=== PATIENT | male | born 1960 | race Caucasian/White ===

== ENCOUNTER → 2016-07-20 | Outpatient (CLI) | payer OTHER ==
--- NOTE | 2016-07-20 08:16 | EKG REPORT ---
SEVERITY:- ABNORMAL ECG - SINUS TACHYCARDIA ATRIAL PREMATURE COMPLEXES BORDERLINE T ABNORMALITIES, INFERIOR LEADS BORDERLINE PROLONGED QT INTERVAL : Confirmed by: Nicolas Lentz MD 20-Jul-2016 08:16:19
[2016-07-20 08:20] LABS: ABSOLUTE BASOPHILS # (AUTO) 0.1 10^3/uL (0.0-0.2); ABSOLUTE EOSINOPHILS # (AUTO) 0.2 10^3/uL (0.0-0.6); ABSOLUTE MONOCYTES (AUTO) 0.8 10^3/uL (0.1-1.4); ABSOLUTE NEUT (AUTO) 6.3 10^3/uL (1.7-8.2); BASOPHILS % (AUTO) 0.9 % (0-2); EOSINOPHILS % (AUTO) 2.5 % (0-6); HEMATOCRIT 47.8 % (37.9-51.0); HEMOGLOBIN 16.5 g/dL (13.5-17.0); HGB HCT DIFFERENCE 1.7; LYMPHOCYTES % (AUTO) 21.3 % (13-45); MEAN CORPUSCULAR HEMOGLOBIN 32.3 pg (27.0-33.4); MEAN CORPUSCULAR HGB CONC 34.5 g/dL (32.0-36.0); MEAN CORPUSCULAR VOLUME 94 fl (80-97); MONOCYTES % (AUTO) 8.7 % (3-13); RED CELL DISTRIBUTION WIDTH 13.1 % (11.5-14.0); SEGMENTED NEUTROPHILS % (AUTO) 66.6 % (42-78); WHITE BLOOD COUNT 9.4 10^3/uL (4.0-10.5)
[2016-07-20 08:39] LABS: ALANINE AMINOTRANSFERASE 45 U/L (21-72); ALBUMIN 4.5 g/dL (3.5-5.0); ALKALINE PHOSPHATASE 81 U/L (38-126); ANION GAP 15 (5-19); ASPARTATE AMINO TRANSFERASE 27 U/L (17-59); BILIRUBIN,DIRECT 0.4 mg/dL (0.0-0.4); BILIRUBIN,TOTAL 0.9 mg/dL (0.2-1.3); BLOOD UREA NITROGEN 12 mg/dL (7-20); CALCIUM 9.3 mg/dL (8.4-10.2); CARBON DIOXIDE 22 mmol/L (22-30); CHLORIDE 102 mmol/L (98-107); CHOLESTEROL 194.61 mg/dL (0-200); CREATININE RESULT 0.88 mg/dL (0.52-1.25); Direct HDL 33 mg/dL (>40); GLUCOSE 128 mg/dL (75-110); POTASSIUM 4.9 mmol/L (3.6-5.0); TOTAL PROTEIN 7.4 g/dL (6.3-8.2); TRIGLYCERIDES 476 mg/dL (<150)
[2016-07-20 08:49] LABS: DIRECT LDL 106 mg/dL (<100)
== END ==
LOC: CCC 07:03
DX: I10 Essential (primary) hypertension (principal); J44.9 Chronic obstructive pulmonary disease, unspecified; R07.9 Chest pain, unspecified; I49.9 Cardiac arrhythmia, unspecified
CPT/HCPCS: 36415; 80053; 80061; 83036; 84153; 84443; 85025; 93005; 93010

== ENCOUNTER → 2016-11-26 | Outpatient (CLI) | payer OTHER ==
--- NOTE | 2016-11-27 16:39 | RADIOLOGY REPORT (SQ) ---
EXAM DESCRIPTION: L SPINE WHOLE; T SPINE AP/LAT COMPLETED DATE/TIME: 11/26/2016 9:07 am REASON FOR STUDY: CHRONIC BACK PAIN COMPARISON: None. NUMBER OF VIEWS: Two views thoracic spine. Five views lumbosacral spine including obliques. LIMITATIONS: None. FINDINGS: T-spine: No malalignment. Multilevel mild disc disease with associated narrowing and sma ll osteophytes. No fracture or bone lesion. L-spine: Normal alignment. Normal bone density. Disc related osteophytes at several levels. Disc space narrowing at L5-S1. Mild upper endplate depression at L2, likely chronic given the appearance. Facet arthropathy is present but no pars defect evident. OTHER: No other significant finding. IMPRESSION: Degenerative changes in the thoracic and lumbar spine as above. TECHNICAL DOCUMENTATION: JOB ID: [id number]
== END ==
LOC: RAD 08:45
DX: M54.9 Dorsalgia, unspecified (principal)
CPT/HCPCS: 72070; 72110

== ENCOUNTER → 2017-05-12 | Outpatient (CLI) | payer MEDICAID ==
--- NOTE | 2017-05-12 08:21 | RADIOLOGY REPORT (SQ) ---
EXAM DESCRIPTION: CHEST PA/LATERAL COMPLETED DATE/TIME: 05/12/2017 7:57 am REASON FOR STUDY: CHRONIC OBSTRUCTIVE PULMONARY DISEASE, UNSPECIFIED COMPARISON: 12/11/2015. EXAM PARAMETERS: NUMBER OF VIEWS: two views TECHNIQUE: Digital Frontal and Lateral radiographic views of the chest acquired. RADIATION DOSE: NA LIMITATIONS: none FINDINGS: LUNGS AND PLEURA: Chronic bilateral interstitial changes. No acute infiltrates or effusio ns. MEDIASTINUM AND HILAR STRUCTURES: No masses or contour abnormalities. HEART AND VASCULAR STRUCTURES: The heart and pulmonary vasculature are normal. BONES: Dorsal spondylosis. HARDWARE: None in the chest. OTHER: No other significant finding. IMPRESSION: Chronic bilateral interstitial changes. No acute disease. TECHNICAL DOCUMENTATION: JOB ID: [id number] 2010 [email or web address]- All Rights Reserved
== END ==
LOC: OD 07:46
PROVIDERS: ATTEND Nurse Practitioner
DX: J44.9 Chronic obstructive pulmonary disease, unspecified (principal)
CPT/HCPCS: 71046

== ENCOUNTER → 2017-05-19 | Outpatient (CLI) | payer MEDICAID ==
--- NOTE | 2017-05-19 11:40 | RADIOLOGY REPORT (SQ) ---
EXAM DESCRIPTION: CAROTID DOPPLER COMPLETED DATE/TIME: 05/19/2017 11:26 am REASON FOR STUDY: SYNCOPE R55 SYNCOPE AND COLLAPSE COMPARISON: None. TECHNIQUE: Grayscale ultrasound, Doppler velocity and spectra, and color Doppler images acquired of the extra-cranial carotid and vertebral arteries. Images stored on PACS. LIMITATIONS: None. FINDINGS: RIGHT CAROTID CCA Velocities: Within normal limits. ICA Velocities Peak systolic 0.56 m/s. End diastolic 0.18 m/s. Proximal ICA/CCA peak systolic ratio 0.5. Spectra normal. No significant plaque. LEFT CAROTID CCA Velocities: Within normal limits. ICA Velocities Peak systolic 0.79 m/s. End diastolic 0.21 m/s. Proximal ICA/CCA peak systolic ratio 0.9. Spectra normal. No significant plaque. VERTEBRAL ARTERIES: Right vertebral was not identified. Normal blood flow was identified in the left vertebral artery. SUBCLAVIAN ARTERIES: No finding. OTHER: No other significant finding. IMPRESSION: NO HEMODYNAMICALLY SIGNIFICANT STENOSIS. COMMENT: Quality ID #[id number]: Velocity criteria are extrapolated from the diameter data as defined by t he Society of Radiologists in Ultrasound Consensus Conference. Radiology 2003: 229; 340-346. TECHNICAL DOCUMENTATION: JOB ID: [id number] [employer]- All Rights Reserved
== END ==
LOC: SP 10:33
PROVIDERS: ATTEND Nurse Practitioner
DX: R55 Syncope and collapse (principal)
CPT/HCPCS: 93880

== ENCOUNTER 2017-05-25 07:17 | Day surgery (SDC) | payer MEDICAID ==
[2017-05-25] MEDS ORDERED: DIPHENHYDRAMINE HCL 50 MG/ML VIAL ONE (07:18)
[2017-05-25] MEDS ORDERED: ONDANSETRON HCL INJ/PF 4 MG/2 ML SDV ONE (07:18)
[2017-05-25] MEDS ORDERED: NALOXONE HCL INJ/PF 0.4 MG/1 ML SDV ONE (07:19)
[2017-05-25] MEDS ORDERED: FLUMAZENIL INJ 0.5 MG/5 ML VIAL ONE (07:20)
[2017-05-25] MEDS ORDERED: EPINEPHRINE INJ 1 MG/10 ML DISP.SYRIN ONE (07:20)
[2017-05-25] MEDS ORDERED: GLUCAGON,HUMAN RECOMB 1 MG INJ ONE (07:20)
[2017-05-25] MEDS: MIDAZOLAM 2 MG/2 ML INJ ONE ×3 (08:07→08:15)
[2017-05-25] MEDS: FENTANYL CITRATE INJ/PF 100 MCG/2 ML AMPUL ONE ×2 (08:09→08:12)
--- NOTE | 2017-05-25 08:29 | Operative Report ---
Operative Report DATE OF SURGERY: 05/25/17 Operative Report: The risks benefits and alternatives of the procedure explained to the patient in detail and informed consent is obtained.A GIF Olympus video scope was inserted into the patient's mouth and hypopharynx, the esophagus is identified intubated and insufflated, the scope was then advanced through the esophagus stomach and duodenum, retroflexion maneuver is done, the esophagus stomach and first and second portions of the duodenum examined PREOPERATIVE DIAGNOSIS: Dysphagia POSTOPERATIVE DIAGNOSIS: Esophagitis versus Regalado's status post biopsy for confirmation. Gastritis status post biopsy rule out Helicobacter pylori. Duodenitis OPERATION: EGD with biopsy SURGEON: LALO CARUSO ANESTHESIA: Moderate Sedation - 6 mg of Versed, 100 mcg of fentanyl. Conscious sedation monitoring time 30 minutes. TISSUE REMOVED OR ALTERED: As noted above. COMPLICATIONS: None. ESTIMATED BLOOD LOSS: None. INTRAOPERATIVE FINDINGS: As noted above. PROCEDURE: Patient tolerated procedure well. No immediate postprocedure complications are noted. Patient discharged in good condition. Discharge date 05/25/2017. Discharge diet: Regular. Discharge activity: Regular. 2-3 week follow-up to discuss findings. Patient is instructed to call the office or proceed to the emergency room should there be any further problems or questions. We will wait on pathology. May have to schedule patient for ablative therapy if biopsies returned showing Regalado's esophagus.
[2017-05-25 09:08] VITALS: BP 112/58
[2017-05-25] MEDS ORDERED: DIPHENHYDRAMINE HCL 50 MG/ML VIAL IV PRN (16:37)
[2017-05-25] MEDS ORDERED: MORPHINE SULFATE 10 MG/ML INJ IV PRN (16:37)
[2017-05-25] MEDS ORDERED: FENTANYL CITRATE INJ/PF 100 MCG/2 ML AMPUL IV PRN ×3 (16:37)
[2017-05-25] MEDS ORDERED: MEPERIDINE HCL/PF INJ 25 MG/1 ML DISP.SYRIN IV PRN (16:37)
[2017-05-25] MEDS ORDERED: PROMETHAZINE HCL INJ 25 MG/1 ML VIAL IV PRN (16:37)
== END 2017-05-25 09:25 | disposition home or self-care (01) ==
LOC: END 07:17
PROVIDERS: ATTEND Internal Medicine Gastroenterology
PROC: 0DB68ZX Excision of Stomach, Via Natural or Artificial Opening Endoscopic, Diagnostic (ICD-10-PCS; 2017-05-25)
PROC: 0DB48ZX Excision of Esophagogastric Junction, Via Natural or Artificial Opening Endoscopic, Diagnostic (ICD-10-PCS; principal; 2017-05-25 08:00)
DX: R13.10 Dysphagia, unspecified (principal); K29.80 Duodenitis without bleeding; K29.50 Unspecified chronic gastritis without bleeding; K21.9 Gastro-esophageal reflux disease without esophagitis; E78.2 Mixed hyperlipidemia; I10 Essential (primary) hypertension; J44.9 Chronic obstructive pulmonary disease, unspecified; E66.9 Obesity, unspecified; F17.210 Nicotine dependence, cigarettes, uncomplicated; Z79.51 Long term (current) use of inhaled steroids; Z79.899 Other long term (current) drug therapy; Z79.82 Long term (current) use of aspirin; Z68.36 Body mass index [BMI] 36.0-36.9, adult
CPT/HCPCS: 43239; 88342 ×2; 88305 ×2; J2250; J3010; J0171; J1200; J1610; J2310; J2405; J3490

== ENCOUNTER 2017-06-21 07:40 | Day surgery (SDC) | payer MEDICAID ==
[~2017-06-21 07:40] MED LIST: PROPOFOL INJ 200 MG/20 ML VIAL IV ONE
[2017-06-21] MEDS ORDERED: ALBUTEROL SULFATE 0.083% NEB 2.5 MG/3 ML AMPUL NEB ONE (08:25)
[2017-06-21] MEDS ORDERED: RINGERS SOLUTION,LACTATED 1,000 ML IV PRN (08:56)
[2017-06-21 10:42] VITALS: BP 102/62
--- NOTE | 2017-06-21 13:37 | Operative Report ---
Operative Report DATE OF SURGERY: 06/21/17 Operative Report: The risks benefits and alternatives of the procedure explained to the patient in detail and informed consent is obtained.A GIF Olympus video scope was inserted into the patient's mouth and hypopharynx, the esophagus is identified intubated and insufflated, the scope was then advanced through the esophagus stomach and duodenum, retroflexion maneuver is done, the esophagus stomach and first and second portions of the duodenum examined PREOPERATIVE DIAGNOSIS: Regalado's esophagus POSTOPERATIVE DIAGNOSIS: Regalado's esophagus status post ablation OPERATION: EGD with ablation SURGEON: LALO CARUSO ANESTHESIA: LMAC TISSUE REMOVED OR ALTERED: None. COMPLICATIONS: None. ESTIMATED BLOOD LOSS: None. INTRAOPERATIVE FINDINGS: As noted above. PROCEDURE: Patient tolerated procedure well. No immediate postprocedure complications are noted. Patient discharged in good condition. Discharge date 06/21/2017. Discharge diet: Regular. Discharge activity: Regular. 2-3 week follow-up to discuss findings. Patient is instructed to call the office or proceed to the emergency room should there be any further problems or questions. Surveillance EGD 6 months for repeat evaluation and possible repeat ablation
== END 2017-06-21 09:45 | disposition home or self-care (01) ==
LOC: END 07:40
PROVIDERS: ATTEND Internal Medicine Gastroenterology
DX: K22.719 Barrett's esophagus with dysplasia, unspecified (principal); I10 Essential (primary) hypertension; E78.2 Mixed hyperlipidemia; F17.210 Nicotine dependence, cigarettes, uncomplicated; J44.9 Chronic obstructive pulmonary disease, unspecified; E66.9 Obesity, unspecified; K21.9 Gastro-esophageal reflux disease without esophagitis; Z79.51 Long term (current) use of inhaled steroids; Z79.899 Other long term (current) drug therapy; Z68.35 Body mass index [BMI] 35.0-35.9, adult; Z79.82 Long term (current) use of aspirin
CPT/HCPCS: 43270; J2704; 731

== ENCOUNTER → 2017-09-27 | Outpatient (CLI) | payer MEDICAID ==
--- NOTE | 2017-09-27 16:45 | RADIOLOGY REPORT (SQ) ---
EXAM DESCRIPTION: CT CHEST WITHOUT COMPLETED DATE/TIME: 09/27/2017 1:43 pm REASON FOR STUDY: PULMONARY NODULE (R91.1) R91.1 SOLITARY PULMONARY NODULE COMPARISON: None. TECHNIQUE: CT scan performed of the chest without intravenous contrast. Images reviewed with lung, soft tissue and bone windows. Reconstructed coronal and sagittal MPR images reviewed. All images st ored on PACS. All CT scanners at this facility use dose modulation, iterative reconstruction, and/or weight based d osing when appropriate to reduce radiation dose to as low as reasonably achievable (ALARA). [facility]: Dose Right [facility]: CareDose [facility]: Dose Right [facility]: Teradose 4D [facility]: [facility] RADIATION DOSE: CT Rad equipment meets quality standard of care and radiation dose reduction techniq ues were employed. CTDIvol: 15.1 mGy. DLP: 609 mGy-cm. mGy. LIMITATIONS: No technical limitations. FINDINGS: LUNGS AND PLEURA: Emphysematous changes in the lungs with blebs/bullae in the biapical, p aramediastinal and paraseptal regions grossly in the upper lobes. In the right upper lobe, coronal i mage 16, series 602, a small 3-4 mm pulmonary nodule. Focal areas of noncalcified pleural plaques in the posterior aspect of the hemithoraces. These findings may be on a prior inflammatory by basis. No acute pulmonary consolidation. No pneumothorax or pleural effusion. The central airways are yanni r. HILAR AND MEDIASTINAL STRUCTURES: No identified masses or abnormal nodes. No obvious aneurysm. HEART AND VASCULAR STRUCTURES: Coronary artery calcifications. No aneurysm. No pericardial effusio n. UPPER ABDOMEN: Mild atherosclerotic changes involving the visualized upper abdominal aorta. No sign ificant findings. Limited exam. THYROID AND OTHER SOFT TISSUES: The visualized thyroid gland is heterogenous in appearance with nodu les in the left lobe. BONES: No significant finding. HARDWARE: None in the chest. OTHER: Small hiatal hernia. Calcified densities in the soft tissues lateral right axilla maybe rela johnathon to prior old trauma/injury. IMPRESSION: 1 A small subcentimeter 3-4 mm right upper lobe pulmonary nodule. 2. Emphysematous changes in the lungs. 3 There are noncalcified plaques in the posterior aspect of the hemithoraces bilaterally. These find ings may be on prior inflammatory basis. 4. The visualized thyroid gland is heterogenous in appearance with nodules in the left lobe. 5 Additional findings as above. TECHNICAL DOCUMENTATION: JOB ID: [id number] Quality ID # [id number]: Final reports with documentation of one or more dose reduction techniques (e.g., Au tomated exposure control, adjustment of the mA and/or kV according to patient size, use of iterative reconstruction technique) 2010 [employer]- All Rights Reserved Reading location - IP/workstation name: [email or web address]
== END ==
LOC: RAD 13:19
PROVIDERS: ATTEND Internal Medicine Critical Care Medicine
DX: R91.1 Solitary pulmonary nodule (principal)
CPT/HCPCS: 71250

== ENCOUNTER → 2018-02-08 | Outpatient (CLI) | payer MEDICAID ==
--- NOTE | 2018-02-08 11:40 | RADIOLOGY REPORT (SQ) ---
EXAM DESCRIPTION: ELBOW RIGHT >2 VIEWS COMPLETED DATE/TIME: 02/08/2018 10:40 am REASON FOR STUDY: UNSPECIFIED INJURY OF RIGHT ELBOW, INITIAL ENCOUNTER S59.901A UNSPECIFIED INJURY OF RIGHT ELBOW, INITIAL ENCOUNTE COMPARISON: None. NUMBER OF VIEWS: Four views. TECHNIQUE: AP, lateral, and both oblique radiographic images acquired of the right elbow. LIMITATIONS: None. FINDINGS: MINERALIZATION: Normal. BONES: No acute fracture or dislocation. No worrisome bone lesions. JOINT: There is a small joint effusion. SOFT TISSUES: No soft tissue swelling. No foreign body. OTHER: No other significant finding. IMPRESSION: Small joint effusion. Occult fracture cannot be excluded. TECHNICAL DOCUMENTATION: JOB ID: [id number] [employer]- All Rights Reserved Reading location - IP/workstation name: [email or web address]
== END ==
LOC: OD 09:58
PROVIDERS: ATTEND Nurse Practitioner Family
DX: S59.901A Unspecified injury of right elbow, initial encounter (principal); X58.XXXA Exposure to other specified factors, initial encounter; M25.421 Effusion, right elbow

== ENCOUNTER 2018-12-02 07:20 | Day surgery (SDC) | payer MEDICAID ==
[2018-12-02] MEDS ORDERED: PROPOFOL INJ 200 MG/20 ML VIAL IV ONE ×2 (07:24→08:33)
[2018-12-02 08:51] VITALS: BP 128/70
[2018-12-02] MEDS ORDERED: CITRIC ACID/SODIUM CITRATE ORAL SOLN 15 ML UDCUP PO ONE (09:30)
--- NOTE | 2018-12-02 12:01 | Operative Report ---
Operative Report DATE OF SURGERY: 12/02/18 Operative Report: The risks benefits and alternatives of the procedure explained to the patient in detail and informed consent is obtained.A GIF Olympus video scope was inserted into the patient's mouth and hypopharynx, the esophagus is identified intubated and insufflated, the scope was then advanced through the esophagus stomach and duodenum ,retroflexion maneuver is done ,the esophagus stomach and first and second portions of the duodenum examined. PREOPERATIVE DIAGNOSIS: Gastroesophageal reflux disease, Regalado's esophagus POSTOPERATIVE DIAGNOSIS: Hiatal hernia. Regalado's esophagus status post radiofrequency ablation OPERATION: EGD with radiofrequency ablation SURGEON: LALO CARUSO ANESTHESIA: LMAC TISSUE REMOVED OR ALTERED: None. COMPLICATIONS: None. ESTIMATED BLOOD LOSS: None. INTRAOPERATIVE FINDINGS: As noted above. PROCEDURE: Patient tolerated the procedure well. No immediate postprocedure complications are noted. Patient is discharged in good condition. Discharge date 12/02/2018. Discharge diet: Regular. Discharge activity: Regular. 2 to 3-week follow-up to discuss findings. Patient is instructed to call the office or proceed to the emergency room should there be any further questions.
== END 2018-12-02 09:05 | disposition home or self-care (01) ==
LOC: END 07:20
PROVIDERS: ATTEND Internal Medicine Gastroenterology
DX: K22.719 Barrett's esophagus with dysplasia, unspecified (principal); K21.9 Gastro-esophageal reflux disease without esophagitis; K44.9 Diaphragmatic hernia without obstruction or gangrene; J44.9 Chronic obstructive pulmonary disease, unspecified; I10 Essential (primary) hypertension; I25.10 Atherosclerotic heart disease of native coronary artery without angina pectoris; E66.9 Obesity, unspecified; Z68.32 Body mass index [BMI] 32.0-32.9, adult
CPT/HCPCS: 43270; J3490; J2704; 731

== ENCOUNTER → 2019-01-30 | Outpatient (CLI) | payer MEDICAID ==
--- NOTE | 2019-01-30 16:25 | RADIOLOGY REPORT (SQ) ---
EXAM DESCRIPTION: CT CHEST WITHOUT COMPLETED DATE/TIME: 01/30/2019 8:44 am REASON FOR STUDY: (J43.9)EMPHYSEMA, UNSPECIFIED J43.9 EMPHYSEMA, UNSPECIFIED COMPARISON: None. TECHNIQUE: CT scan performed of the chest without intravenous contrast. Images reviewed with lung, soft tissue and bone windows. Reconstructed coronal and sagittal MPR images reviewed. All images st ored on PACS. All CT scanners at this facility use dose modulation, iterative reconstruction, and/or weight based d osing when appropriate to reduce radiation dose to as low as reasonably achievable (ALARA). [facility]: Dose Right [facility]: CareDose [facility]: Dose Right [facility]: Teradose 4D [facility]: [facility] [employer] RADIATION DOSE: CT Rad equipment meets quality standard of care and radiation dose reduction techniq ues were employed. CTDIvol: 16.3 mGy. DLP: 756 mGy-cm. mGy. LIMITATIONS: No technical limitations. FINDINGS: LUNGS AND PLEURA: Mild paraseptal emphysematous changes are seen in the upper lobes. No i nfiltrate or effusion. No pulmonary mass. HILAR AND MEDIASTINAL STRUCTURES: There are some small nonspecific mediastinal nodes. HEART AND VASCULAR STRUCTURES: No aneurysm. No pericardial effusion. UPPER ABDOMEN: Small mesenteric nodes are seen. THYROID AND OTHER SOFT TISSUES: No masses. No adenopathy. BONES: No significant finding. HARDWARE: None in the chest. OTHER: No other significant findings. IMPRESSION: Mild paraseptal emphysema. Mild mediastinal and mesenteric adenopathy. TECHNICAL DOCUMENTATION: JOB ID: [id number] Quality ID # [id number]: Final reports with documentation of one or more dose reduction techniques (e.g., Au tomated exposure control, adjustment of the mA and/or kV according to patient size, use of iterative reconstruction technique) 2010 [employer]- All Rights Reserved Reading location - IP/workstation name: [email or web address]
== END ==
LOC: RAD 08:24
PROVIDERS: ATTEND Internal Medicine Critical Care Medicine
DX: J43.9 Emphysema, unspecified (principal); Z80.9 Family history of malignant neoplasm, unspecified; R05 Cough
CPT/HCPCS: 71250

== ENCOUNTER → 2019-02-03 | Outpatient (CLI) | payer MEDICAID | LOC: OD 08:17 | PROVIDERS: ATTEND Otolaryngology | DX: J30.9 Allergic rhinitis, unspecified (principal) | CPT/HCPCS: 36415; 82785; 86003 ==

== ENCOUNTER → 2019-02-03 | Outpatient (CLI) | payer MEDICAID ==
--- NOTE | 2019-02-03 09:49 | RADIOLOGY REPORT (SQ) ---
EXAM DESCRIPTION: MRI LUMBAR SPINE WITHOUT COMPLETED DATE/TIME: 02/03/2019 7:45 am REASON FOR STUDY: LUMBAR RADICULOPATHY (M54.16) M54.16 RADICULOPATHY, LUMBAR REGION COMPARISON: None. TECHNIQUE: Sagittal and Axial imaging includes T1, T2, STIR and gradient echo sequences. Coronal T2/ HASTE imaging. LIMITATIONS: None. FINDINGS: VISUALIZED UPPER ABDOMEN: No abnormality. SEGMENTATION: There are 5 lumbar-type vertebral bodies. There is no transitional anatomy at the lumb osacral junction. ALIGNMENT: Straightening of the normal lordotic curvature of the cervical spine with grade 1 retrolis thesis of L5 relative to S1. VERTEBRAE: The lumbar vertebral body heights are preserved. There are Schmorl's nodes at the superio r endplates of L3 and L4. There is no fracture. BONE MARROW: There are Modic type 2 endplate changes at L1-L2, L2-L3, L3-L4 and L5-S1. DISC SIGNAL: The L2-L3 and L3-L4 intervertebral disc are desiccated. The L5-S1 intervertebral disc i s narrowed and desiccated. POSTERIOR ELEMENTS: Intact. HARDWARE: None in the spine. CORD AND CONUS: The conus medullaris terminates at the level of T12-L1 and is normal in caliber and s ignal intensity. SOFT TISSUES: No abnormality. L1-L2: Mild disc bulge without foraminal or spinal stenosis. L2-L3: Mild disc bulge that flattens the ventral aspect of the thecal sac and degeneration of the fac et joints. These findings results in no foraminal or spinal stenosis. L3-L4: Mild disc bulge eccentric to the right that encroaches on the inferior aspect of the neurofora men without mass effect on the nerve roots and degeneration of the facet joints ; these findings resu lt in no foraminal or spinal stenosis. L4-L5: Disc bulge that encroaches on the inferior aspect of the neuroforamina and degeneration of the facet joints ; in combination this findings results in mild bilateral foraminal stenosis without com pression of the nerve roots. L5-S1: Disc bulge that encroaches on the inferior aspect of the neuroforamina and abuts the L5 nerve roots, grade 1 retrolisthesis, and degeneration of the facet joints. In combination these findings r esult in moderate to severe bilateral foraminal stenosis. LOWER THORACIC: No stenosis. SACRUM: Image sacrum is intact. OTHER: No other findings. IMPRESSION: Degenerative spondylosis and facet arthropathy of the lumbar spine with moderate to robert re foraminal stenosis bilaterally at L5-S1. TECHNICAL DOCUMENTATION: JOB ID: [id number] [employer]- All Rights Reserved Reading location - IP/workstation name: [email or web address]
== END ==
LOC: RAD 06:23
PROVIDERS: ATTEND Nurse Practitioner Family
DX: M54.16 Radiculopathy, lumbar region (principal); M47.896 Other spondylosis, lumbar region; M48.07 Spinal stenosis, lumbosacral region
CPT/HCPCS: 72148

== ENCOUNTER → 2020-01-05 | Outpatient (CLI) | payer MEDICAID ==
--- NOTE | 2020-01-05 10:14 | RADIOLOGY REPORT (SQ) ---
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 TECHNIQUE: Sagittal and Axial imaging includes T1, T2, STIR and gradient echo sequences. LIMITATIONS: Motion artifact. FINDINGS: LOCALIZER: No worrisome findings. ALIGNMENT: Normal. VERTEBRAE: Intact. BONE MARROW: Normal. No marrow replacement or reactive changes. HARDWARE: None in the spine. CORD: Normal in size and signal intensity. SOFT TISSUES: No soft tissue masses. THORACIC DISCS T1-T12: Disc bulge at T8- 9 resulting in minimal narrowing of the spinal canal. Small left paracentral disc herniation at T9-10. No cord contact or compression. LOWER CERVICAL: Incompletely imaged. No significant spinal stenosis or exit foraminal stenosis. UPPER LUMBAR: Incompletely imaged. No significant spinal stenosis or exit foraminal stenosis. OTHER: No other significant finding. IMPRESSION: No evidence of acute compression fracture. Small disc herniation T9-10. TECHNICAL DOCUMENTATION: JOB ID: [id number] 2010 [employer]- All Rights Reserved Reading location - IP/workstation name: [email or web address]
== END ==
LOC: RAD 06:51
PROVIDERS: ATTEND Nurse Practitioner Family
DX: M47.814 Spondylosis without myelopathy or radiculopathy, thoracic region (principal); M51.24 Other intervertebral disc displacement, thoracic region
CPT/HCPCS: 72146

== ENCOUNTER 2020-01-17 17:38 | Inpatient (IN) | payer MEDICAID ==
--- NOTE | 2020-01-17 18:06 | ER Document Report ---
ED Medical Screen (RME) - General Chief Complaint: Irregular Pulse Stated Complaint: IRREGULAR HEART RATE Primary Care Provider: TOSHIA GIFFORD FNP-C [Primary Care Provider] - Follow up as needed Notes: Patient is a 59-year-old white male with a history of hypertension and gout who presents the emergency department the chief complaint of atrial fibrillation. He was being evaluated by his primary doctor for complaints of chest pain when they noted atrial fibrillation on EKG. The patient was seeing Dr. Portillo, haz tech recently for follow-up from Holter monitor testing. He reports no known history of atrial fibrillation. States he had a normal echo in the past. States he is currently having some chest pain now. He took aspirin today. I have treated and performed a rapid initial assessment of this patient. A comprehensive ED assessment and evaluation of the patient, analysis of test results and completion of medical decision making process will be conducted by additional ED providers. PHYSICAL EXAMINATION: GENERAL: Well-appearing, well-nourished and in no acute distress. A&Ox4. Answers questions appropriately. TRAVEL OUTSIDE OF THE [place] IN LAST 30 DAYS: No - Related Data Allergies/Adverse Reactions: No Known Allergies Allergy (Verified 12/02/18 06:59) Past Medical History - Past Medical History Cardiac Medical History: Reports: Hx Hypertension Denies: Hx Coronary Artery Disease, Hx Heart Attack Pulmonary Medical History: Reports: Hx Asthma, Hx COPD Denies: Hx Bronchitis, Hx Pneumonia Neurological Medical History: Denies: Hx Cerebrovascular Accident, Hx Seizures Musculoskeltal Medical History: Reports Hx Arthritis, Reports Hx Gout - Immunizations Hx Diphtheria, Pertussis, Tetanus Vaccination: Yes Physical Exam - Vital signs Vitals: Temp Pulse Resp BP Pulse Ox 98.7 F 89 18 140/81 H 96 01/17/20 17:52 01/17/20 17:52 01/17/20 17:52 01/17/20 17:52 01/17/20 17:52 Course - Vital Signs Vital signs: Temp Pulse Resp BP Pulse Ox 98.7 F 89 18 140/81 H 96 01/17/20 17:52 01/17/20 17:52 01/17/20 17:52 01/17/20 17:52 01/17/20 17:52 Doctor's Discharge - Discharge Referrals: TOSHIA GIFFORD FNP-C [Primary Care Provider] - Follow up as needed
--- NOTE | 2020-01-17 18:33 | RADIOLOGY REPORT (SQ) ---
EXAM DESCRIPTION: CHEST SINGLE VIEW IMAGES COMPLETED DATE/TIME: 01/17/2020 6:24 pm REASON FOR STUDY: cp COMPARISON: 12/11/2015 TECHNIQUE: Single frontal radiographic view of the chest acquired. NUMBER OF VIEWS: One view. LIMITATIONS: None. FINDINGS: LUNGS AND PLEURA: No pneumothorax. Mild interstitial thickening bilaterally. No consolid ation or pleural effusion. MEDIASTINUM AND HILAR STRUCTURES: Stable. HEART AND VASCULAR STRUCTURES: Stable. BONES: No acute findings. HARDWARE: None in the chest. OTHER: No other significant finding. IMPRESSION: Mild interstitial thickening bilaterally. No consolidation or pleural effusion. TECHNICAL DOCUMENTATION: JOB ID: [id number] 2010 [employer] - [place]- All Rights Reserved Reading location - IP/workstation name: [email or web address]
[2020-01-17 19:18] LABS: ABSOLUTE BASOPHILS # (AUTO) 0.1 10^3/uL (0.0-0.2); ABSOLUTE EOSINOPHILS # (AUTO) 0.3 10^3/uL (0.0-0.6); ABSOLUTE LYMPHOCYTES (AUTO) 2.2 10^3/uL (0.5-4.7); ABSOLUTE MONOCYTES (AUTO) 0.8 10^3/uL (0.1-1.4); ABSOLUTE NEUT (AUTO) 5.7 10^3/uL (1.7-8.2); EOSINOPHILS % (AUTO) 3.6 % (0-6); HEMATOCRIT 37.6 % (37.9-51.0); HEMOGLOBIN 13.3 g/dL (13.5-17.0); LYMPHOCYTES % (AUTO) 23.8 % (13-45); MEAN CORPUSCULAR HEMOGLOBIN 32.8 pg (27.0-33.4); MEAN CORPUSCULAR HGB CONC 35.4 g/dL (32.0-36.0); MEAN CORPUSCULAR VOLUME 93 fl (80-97); MONOCYTES % (AUTO) 8.8 % (3-13); PLATELET COUNT 175 10^3/uL (150-450); RED BLOOD COUNT 4.06 10^6/uL (4.35-5.55); RED CELL DISTRIBUTION WIDTH 14.3 % (11.5-14.0); SEGMENTED NEUTROPHILS % (AUTO) 62.8 % (42-78); TOTAL CELLS COUNTED % (AUTO) 100 %; WHITE BLOOD COUNT 9.1 10^3/uL (4.0-10.5)
[2020-01-17 19:29] LABS: INTERNATIONAL RATION (INR) 1.06
[2020-01-17 19:30] LABS: PARTIAL THROMBOPLASTIN TIME 30.3 SEC (23.5-35.8)
[2020-01-17 19:33] LABS: ALBUMIN 4.4 g/dL (3.5-5.0); ALKALINE PHOSPHATASE 65 U/L (38-126); ANION GAP 11 (5-19); ASPARTATE AMINO TRANSFERASE 29 U/L (17-59); BILIRUBIN,DIRECT 0.3 mg/dL (0.0-0.4); BILIRUBIN,TOTAL 0.5 mg/dL (0.2-1.3); BLOOD UREA NITROGEN 23 mg/dL (7-20); CARBON DIOXIDE 23 mmol/L (22-30); CHLORIDE 104 mmol/L (98-107); CREATINE KINASE 71 U/L (55-170); GLUCOSE 174 mg/dL (75-110); PHOSPHORUS 4.9 mg/dL (2.5-4.5); TOTAL PROTEIN 6.8 g/dL (6.3-8.2)
[2020-01-17 19:44] LABS: NT PRO BNP 1480 pg/mL (<125)
[2020-01-17 19:48] LABS: TROPONIN I < 0.012 ng/mL
--- NOTE | 2020-01-17 23:06 | ER Document Report ---
ED Cardiac - General Chief Complaint: Irregular Pulse Stated Complaint: IRREGULAR HEART RATE Time Seen by Provider: 01/17/20 22:47 Mode of Arrival: Ambulatory Information source: Patient Notes: 59-year-old male past medical history significant for hyperlipidemia, hypertension, gout, asthma, vitamin D deficiency, COPD presents to the emergency room after being sent over by his primary care physician for new onset of A. fib. Patient states he had a routine follow-up appointment with his doctor's office today to discuss his medications and for his recent onset of leg swelling. Patient stated his primary care physician listened to his heart noticed he had irregular rate and EKG noticed he was in new onset A. fib and was referred to the emergency room. Patient admits to having intermittent chest pain for the past month. Describes it as a pressure to the midsternal region. States he did take 1 baby aspirin earlier this morning. He denies any shortness of breath, no difficulty breathing. TRAVEL OUTSIDE OF THE [place] IN LAST 30 DAYS: No - Related Data Allergies/Adverse Reactions: No Known Allergies Allergy (Verified 12/02/18 06:59) Past Medical History - General Information source: Patient - Social History Smoking Status: Current Every Day Smoker Frequency of alcohol use: None Drug Abuse: None Family History: DM - Past Medical History Cardiac Medical History: Reports: Hx Hypertension Denies: Hx Coronary Artery Disease, Hx Heart Attack Pulmonary Medical History: Reports: Hx Asthma, Hx COPD Denies: Hx Bronchitis, Hx Pneumonia Neurological Medical History: Denies: Hx Cerebrovascular Accident, Hx Seizures Musculoskeletal Medical History: Reports Hx Arthritis, Reports Hx Gout - Immunizations Hx Diphtheria, Pertussis, Tetanus Vaccination: Yes Review of Systems - Review of Systems Constitutional: No symptoms reported EENT: No symptoms reported Cardiovascular: Chest pain, Edema Respiratory: No symptoms reported Musculoskeletal: No symptoms reported Skin: No symptoms reported Neurological/Psychological: No symptoms reported -: Yes All other systems reviewed and negative Physical Exam - Vital signs Vitals: Temp Pulse Resp BP Pulse Ox 98.7 F 89 18 140/81 H 96 01/17/20 17:52 01/17/20 17:52 01/17/20 17:52 01/17/20 17:52 01/17/20 17:52 - General General appearance: Appears well, Alert In distress: Mild - HEENT Head: Normocephalic, Atraumatic Eyes: Normal Pupils: PERRL - Respiratory Respiratory status: No respiratory distress Chest status: Nontender Breath sounds: Decreased air movement Chest palpation: Normal - Cardiovascular Rhythm: Irregularly irregular Heart sounds: Normal auscultation Murmur: No - Extremities General upper extremity: Normal inspection, Nontender, Normal color, Normal ROM, Normal temperature General lower extremity: Normal inspection, Nontender, Edema - 2+ pitting edema bilaterally, Normal color, Normal ROM, Normal temperature. No: Maryann's sign - Skin Skin Temperature: Warm Skin Moisture: Dry Skin Color: Normal Course - Re-evaluation Re-evalutation: 01/17/20 23:15 HEART Score: History 0 ECG 0 Age 1 Risk Factors 2 Troponin 0 Total: 3 01/17/20 23:24 Reviewed lab, x-ray, EKG results with patient. Counseled on need for admission for new onset of A. fib. Patient is agreeable to admission. - Vital Signs Vital signs: Temp Pulse Resp BP Pulse Ox 98.1 F 89 20 147/85 H 97 01/18/20 00:26 01/17/20 17:52 01/18/20 00:26 01/18/20 00:26 01/18/20 00:26 - Laboratory Result Diagrams: 01/17/20 19:03 01/17/20 19:03 Laboratory results interpreted by me: 01/17/20 01/17/20 01/17/20 19:03 19:03 19:03 RBC 4.06 L Hgb 13.3 L Hct 37.6 L RDW 14.3 H BUN 23 H Glucose 174 H Phosphorus 4.9 H ALT 55 H NT-Pro-B Natriuret Pep 1480 H - Diagnostic Test Radiology reviewed: Reports reviewed - EKG Interpretation by Me Rhythm: A.Fib Additional EKG results interpreted by me: 01/17/20 23:05 EKG was interpreted by ER physician Dr. Lemos No acute STEMI A. fib Rate [address] abnormalities Fib new onset when compared to previous EKG of 07/20/16 which showed sinus tachycardia - Consults Dr. Gaming Time consulted: 23:40 Reason for consultation: 01/17/20 23:40 Admit for new onset A. fib. Agrees evaluation, agrees with plan, accepts admission. Would like Dr. Portillo, cardiology notified. Consulted provider: will come to ER Dr. Hernadez Time consulted: 23:46 Reason for consultation: 01/17/20 23:[address] Gaming, chest pain, new onset A. fib Consulted provider: will see as inpatient Discharge - Discharge Clinical Impression: New onset atrial fibrillation Chest pain Qualifiers: Chest pain type: unspecified Qualified Code(s): R07.9 - Chest pain, unspecified Condition: Stable Disposition: ADMITTED OBSERVATION Admitting Provider: Mekhi (Hospitalist) Unit Admitted: Telemetry
[2020-01-17] MEDS ORDERED: ASPIRIN 81 MG TABLET, CHEWABLE PO ONE (23:13)
[2020-01-18] MEDS ORDERED: IPRATROPIUM/ALBUTEROL 0.5-2.5 MG/3 ML AMPUL NEB PRN (00:52)
[2020-01-18] MEDS ORDERED: ACETAMINOPHEN 325 MG TABLET PO PRN (00:54)
[2020-01-18] MEDS ORDERED: ONDANSETRON 4 MG TAB.RAPDIS PO PRN (00:54)
[2020-01-18] MEDS ORDERED: HYDROCODONE/ACETAMINOPHEN 10-325 MG TABLET PO PRN (01:02)
[2020-01-18] MEDS ORDERED: ENOXAPARIN SODIUM INJ 120 MG/0.8 ML DISP.SYRIN SUBCUT ONE (01:30)
--- NOTE | 2020-01-18 02:37 | PDOC H&P ---
History of Present Illness Admission Date/PCP: 01/18/20 00:52 LUIS BANERJEE-Miguel Patient complains of: leg swelling, weight gain History of Present Illness: BROOKLYN JACKSON is a 59 year old male, past medical history of hypertension, hyperlipidemia, gout, asthma, COPD who was sent to the emergency room by his primary care physician for new onset A. fib. Patient saw his primary care physician today for a follow-up appointment to discuss his medications. Upon physical exam his primary care noted irregular heart rate and rhythm, which was confirmed by EKG. He was sent to the ED for further evaluation and management. According to the patient he is noticed a 15 pound weight gain for the past month, with leg swelling, exertional dyspnea, palpitations, and chest pain relieved by rest, midsternal, non radiating. He has seen Dr. Portillo in the past. Past Medical History Cardiac Medical History: Reports: Hypertension Denies: Congestive Heart Failure, Coronary Artery Disease, Myocardial Infarction Pulmonary Medical History: Reports: Asthma, Chronic Obstructive Pulmonary Disease (COPD) Denies: Bronchitis, Pneumonia, Tuberculosis Neurological Medical History: Denies: Seizures Endocrine Medical History: Denies: Diabetes Mellitus Type 2 Renal/ Medical History: Denies: End Stage Renal Disease GI Medical History: Denies: Cirrhosis, Gastroesophageal Reflux Disease Musculoskeltal Medical History: Reports: Arthritis, Gout Psychiatric Medical History: Reports: Alcohol Dependency, Tobacco Dependency Denies: Bipolar Disorder, Depression Hematology: Denies: Anemia, Bleeding Tendencies Past Surgical History Past Surgical History: Reports: Tonsillectomy, Other - exlap as a child Social History Information Source: Patient Smoking Status: Current Every Day Smoker Cigarettes Packs Per Day: 1 Electronic Cigarette use?: No Frequency of Alcohol Use: Heavy Amount of Alcoholic Beverages Per Day: 12 pack per day quit 3 months ago Hx Recreational Drug Use: No - Advance Directive Resuscitation Status: Full Code Family History Family History: Reviewed & Not Pertinent, DM Parental Family History Reviewed: No Children Family History Reviewed: No Sibling(s) Family History Reviewed.: No Medication/Allergy Home Medications: Aspirin [Aspirin EC] 81 mg PO DAILY 05/25/17 Atorvastatin Calcium 40 mg PO DAILY 05/25/17 Cholecalciferol (Vitamin D3) [Vitamin D] 2,000 unit PO DAILY 05/25/17 Docusate Sodium 100 mg PO DAILY 05/25/17 Lisinopril 40 mg PO DAILY 05/25/17 Metoprolol Tartrate [Lopressor 25 mg Tablet] 25 mg PO BID 05/25/17 Allopurinol [Zyloprim 100 mg Tablet] 100 mg PO DAILY 11/30/18 Fluticasone/Salmeterol [Advair 100-50 Diskus 14 Dose/Diskus] 1 spray .ROUTE D AILY 11/30/18 Omeprazole 40 mg PO DAILY 11/30/18 Albuterol Sulfate [Proair Respiclick] 2 puff IH ASDIR PRN 12/02/18 Colchicine [Colchicine 0.6 mg Tablet] 0.6 mg PO DAILY 12/02/18 Fluticasone/Salmeterol [Advair 250-50 Diskus 14 Dose/Diskus] 1 inh IH DAILY 12/02/18 Magnesium Oxide [Magnesium] 500 mg PO DAILY 12/02/18 Metoprolol Tartrate [Lopressor 25 mg Tablet] 25 mg PO Q12 12/02/18 Multivitamin [Multivitamins] 1 each PO DAILY 12/02/18 [place] Jelly/Bee Pollen/P.ginsg [[place] Ginseng Complex Cap] 1 each PO DAILY 12/02/18 Allergies/Adverse Reactions: No Known Allergies Allergy (Verified 12/02/18 06:59) Review of Systems Constitutional: PRESENT: fatigue, weight gain Eyes: ABSENT: visual disturbances Ears: ABSENT: hearing changes Cardiovascular: PRESENT: chest pain, dyspnea on exertion, edema, palpitations. ABSENT: orthropnea Respiratory: ABSENT: cough Gastrointestinal: ABSENT: abdominal pain, diarrhea Neurological: ABSENT: abnormal gait, abnormal movements Psychiatric: ABSENT: depression, suicidal ideation Physical Exam Vital Signs: Temp Pulse Resp BP Pulse Ox 98.1 F 89 20 147/85 H 97 01/18/20 00:26 01/17/20 17:52 01/18/20 00:26 01/18/20 00:26 01/18/20 00:26 Intake & Output 01/16/20 01/17/20 01/18/20 06:59 06:59 06:59 Weight 116.5 kg General appearance: PRESENT: no acute distress, cooperative Head exam: PRESENT: atraumatic, normocephalic Eye exam: PRESENT: EOMI, PERRLA Mouth exam: PRESENT: moist Neck exam: PRESENT: full ROM Respiratory exam: PRESENT: clear to auscultation kayleigh, symmetrical, unlabored Cardiovascular exam: PRESENT: irregular rhythm, tachycardia. ABSENT: gallop, systolic murmur Pulses: PRESENT: +2 pedal pulses bilateral GI/Abdominal exam: PRESENT: normal bowel sounds, soft. ABSENT: rebound, tenderness Extremities exam: PRESENT: +2 edema Musculoskeletal exam: PRESENT: full ROM Neurological exam: PRESENT: alert, awake, oriented to person, oriented to place, oriented to time, oriented to situation Psychiatric exam: PRESENT: normal mood Skin exam: PRESENT: normal color Results Laboratory Results: 01/17/20 19:03 01/17/20 19:03 01/17/20 01/17/20 01/17/20 19:03 19:03 22:31 WBC 9.1 RBC 4.06 L Hgb 13.3 L Hct 37.6 L MCV 93 MCH 32.8 MCHC 35.4 RDW 14.3 H Plt Count 175 Seg Neutrophils % 62.8 Sodium 138.4 Potassium 4.0 Chloride 104 Carbon Dioxide 23 Anion Gap 11 BUN 23 H Creatinine 0.91 Est GFR ( Amer) > 60 Glucose 174 H Calcium 10.0 Ionized Calcium Lauren 1.19 Phosphorus 4.9 H Magnesium 1.6 Total Bilirubin 0.5 AST 29 Alkaline Phosphatase 65 Total Protein 6.8 Albumin 4.4 01/17/20 01/17/20 01/18/20 19:03 19:03 00:24 Creatine Kinase 71 Troponin I < 0.012 < 0.012 NT-Pro-B Natriuret Pep 1480 H Impressions: Chest X-Ray 01/17/20 18:04 IMPRESSION: Mild interstitial thickening bilaterally. No consolidation or pleural effusion. Assessment and Plan - Diagnosis (1) New onset atrial fibrillation Is this a current diagnosis for this admission?: Yes Plan: - EKG a.fib HR 90s - no prior history - Chadsvasc score 1 (for hypertension) 2 if with CHF - started on lovenox therapeutic - resumed lopressor - echo pending - TSH pending - Dr. Portillo consulted (2) HTN (hypertension) Qualifiers: Hypertension type: essential hypertension Qualified Code(s): I10 - Essential (primary) hypertension Is this a current diagnosis for this admission?: Yes Plan: - BP 140/81 - resumed lisinopril and metoprolol (3) HLD (hyperlipidemia) Qualifiers: Hyperlipidemia type: unspecified Qualified Code(s): E78.5 - Hyperlipidemia, unspecified Is this a current diagnosis for this admission?: Yes Plan: - lipid panel pending - continue statin (4) Gout Qualifiers: Gout site: unspecified site Gout etiology: unspecified cause Chronicity: chronic Presence of tophus: without tophus Qualified Code(s): M1A.9XX0 - Chronic gout, unspecified, without tophus (tophi) Is this a current diagnosis for this admission?: Yes Plan: - resmued allopurinol and colchicine (5) Chest pain Qualifiers: Chest pain type: unspecified Qualified Code(s): R07.9 - Chest pain, unspecified Is this a current diagnosis for this admission?: Yes Plan: - EKG A.fib not in RVR - trop negative x 2 - likely a.fib related - resumed aspirin and metoprolol (6) Elevated brain natriuretic peptide (BNP) level Is this a current diagnosis for this admission?: Yes Plan: - BNP 1480 - +ve weight gain - CXR no congestion - likely has CHF secondary to a.fib - echo pending - may need lasix dr. portillo on board (7) Obesity (BMI 30-39.9) Is this a current diagnosis for this admission?: Yes Plan: - advised diet and weight loss (8) COPD (chronic obstructive pulmonary disease) Qualifiers: COPD type: unspecified COPD Qualified Code(s): J44.9 - Chronic obstructive pulmonary disease, unspecified Is this a current diagnosis for this admission?: Yes Plan: - not in exacerbation - current smoker - on duoneb prn (9) Tobacco abuse Is this a current diagnosis for this admission?: Yes Plan: - smoking cessation counseling - Time Time Spent with patient: 35 or more minutes Smoking Cessation Education: 3 to 10 minutes Medications reviewed and adjusted accordingly: Yes Anticipated Discharge Disposition: Home, Self Care Anticipated Discharge Timeframe: within 48 hours - Inpatient Certification Medical Necessity: Significant Comorbidiites Make Outpatient Treatment Too Risky
[2020-01-18] MEDS ORDERED: PANTOPRAZOLE SODIUM 40 MG TABLET.DR PO SCH (06:00)
--- NOTE | 2020-01-18 08:54 | EKG REPORT ---
SEVERITY:- ABNORMAL ECG - ATRIAL FIBRILLATION, V-RATE 62-139 : Confirmed by: Domenica Leung MD 18-Jan-2020 08:54:21
[2020-01-18] MEDS ORDERED: APIXABAN 5 MG TABLET PO SCH (10:00)
[2020-01-18] MEDS ORDERED: COLCHICINE 0.6 MG TABLET PO SCH (10:00)
[2020-01-18] MEDS ORDERED: FUROSEMIDE INJ/PF 20 MG/2 ML SDV IV SCH ×2 (10:00→22:00)
[2020-01-18] MEDS ORDERED: FLUTICASONE/VILANTEROL 100-25 MCG/DOSE IH SCH (10:00)
[2020-01-18] MEDS ORDERED: ENOXAPARIN SODIUM INJ 120 MG/0.8 ML DISP.SYRIN SUBCUT SCH (10:00)
[2020-01-18] MEDS ORDERED: METOPROLOL TARTRATE 25 MG TABLET PO SCH (10:00)
[2020-01-18] MEDS ORDERED: LISINOPRIL 10 MG TABLET PO SCH (10:00)
[2020-01-18] MEDS ORDERED: DOCUSATE SODIUM 100 MG CAPSULE PO SCH (10:00)
[2020-01-18] MEDS ORDERED: ALLOPURINOL 100 MG TABLET PO SCH (10:00)
[2020-01-18] MEDS ORDERED: ASPIRIN 81 MG TABLET, ENT COATED PO SCH (10:00)
--- NOTE | 2020-01-18 12:03 | PDOC CONSULTATION ---
Consultation Consult Date: 01/18/20 Attending physician:: KIERSTEN ENWMAN Provider Consulted: JUNIOR PEARCE Consult reason:: A-fib History of Present Illness Admission Date/PCP: 01/18/20 00:52 BREANNE BANERJEE History of Present Illness: BROOKLYN JACKSON is a 59 year old male with history of hypertension, hyperlipidemia, gout, asthma, COPD who is consulted to our service for evaluation of atrial fibrillation. He was seen by his primary care physician and was noted to be in atrial fibrillation. This morning he was feeling okay and he now respiratory distress. His main complaint was 15 pound weight gain in 1 month associated with swelling of the ankles. He denied PND, orthopnea and DUNLAP. His BNP slightly elevated at 1480 with chest x-ray suggestive of early pulmonary edema. His telemetry demonstrated atrial fibrillation with a controlled heart rate. Physical exam on 01/18/2020: GENERAL: Pleasant and conversational. Oriented x3 with normal mood. Not in acute distress. Well groomed and well developed. HEENT: Normocephalic, atraumatic. Pupils equal. Sclerae anicteric. Oropharynx moist. NECK: No JVD. No carotid bruits. LUNGS: Clear to auscultation bilaterally. Normal respiratory effort without the use of accessory muscles or intercostal retractions. CARDIOVASCULAR: Irregularly irregular rate and rhythm, normal S1 and S2 without murmurs, rubs, or gallops. PMI not displaced. ABDOMEN: No masses or tenderness to palpation. No bruit. No splenomegaly or hepatomegaly. No abdominal aorta bruit noted. EXTREMITIES: 1+ pitting edema bilaterally, no cyanosis, no clubbing. +2 pulses femoral and pedal pulses bilaterally. SKIN: No lesions or rashes. MUSCULOSKELETAL: No chest tenderness to palpation. NEUROLOGIC: Nonfocal. No gross sensory or motor deficits bilateral upper or lower extremities. Cardiac studies: Nuclear stress testing on 08/26/16: 1. Negative Lexiscan portion with respect to perfusion images suggestive of ischemia or infarct. 2. Preserved left ventricular systolic function with a resting ejection fraction of 69%. 3. Normal regional wall motion analysis. EKG on 08/14/16: Normal sinus rhythm, normal EKG. Echocardiogram on 07/28/16: -Ejection fraction is within normal limits. -The left ventricle is grossly normal in size. -Cannot accurately commented on regional wall motion abnormalities. -RV systolic function is normal. -Borderline left atrial last week. -Trace MR, trace TR. Holter monitor on 07/29/16: Unremarkable Holter. Past Medical History Cardiac Medical History: Reports: Hypertension Denies: Congestive Heart Failure, Coronary Artery Disease, Myocardial Infarction Pulmonary Medical History: Reports: Asthma, Chronic Obstructive Pulmonary Disease (COPD) Denies: Bronchitis, Pneumonia, Tuberculosis Neurological Medical History: Denies: Seizures Endocrine Medical History: Denies: Diabetes Mellitus Type 2 Renal/ Medical History: Denies: End Stage Renal Disease GI Medical History: Denies: Cirrhosis, Gastroesophageal Reflux Disease Musculoskeltal Medical History: Reports: Arthritis, Gout Psychiatric Medical History: Reports: Alcohol Dependency, Tobacco Dependency Denies: Bipolar Disorder, Depression Hematology: Denies: Anemia, Bleeding Tendencies Past Surgical History Past Surgical History: Reports: Tonsillectomy, Other - exlap as a child Social History Smoking Status: Current Every Day Smoker Cigarettes Packs Per Day: 1 Electronic Cigarette use?: No Frequency of Alcohol Use: Heavy Hx Recreational Drug Use: No - Advance Directive Resuscitation Status: Full Code Family History Family History: Reviewed & Not Pertinent, DM Parental Family History Reviewed: Yes Children Family History Reviewed: Yes Sibling(s) Family History Reviewed.: Yes Medication/Allergy Home Medications: Atorvastatin Calcium 40 mg PO DAILY 05/25/17 Cholecalciferol (Vitamin D3) [Vitamin D] 2,000 unit PO DAILY 05/25/17 Lisinopril 40 mg PO DAILY 05/25/17 Metoprolol Tartrate [Lopressor 25 mg Tablet] 25 mg PO BID 05/25/17 Omeprazole 40 mg PO DAILY 11/30/18 Albuterol Sulfate [Proair Respiclick] 2 puff IH QID 12/02/18 Fluticasone/Salmeterol [Advair 250-50 Diskus 14 Dose/Diskus] 1 inh IH BID 12/02/18 Allopurinol [Zyloprim 300 mg Tablet] 600 mg PO DAILY 01/18/20 Fluticasone Propionate [Flonase Nasal [place] 50 Mcg/[place] 16 gm] 2 sprays NASL Q12 01/18/20 Gabapentin [Neurontin 300 mg Capsule] 300 mg PO QID 01/18/20 Hydrochlorothiazide 12.5 mg PO DAILY 01/18/20 Loratadine [Claritin 10 mg Tablet] 10 mg PO DAILY 01/18/20 Meloxicam [Mobic] 15 mg PO DAILY 01/18/20 Pravastatin Sodium 80 mg PO DAILY 01/18/20 Allergies/Adverse Reactions: No Known Allergies Allergy (Verified 12/02/18 06:59) Physical Exam Vital Signs: Temp Pulse Resp BP Pulse Ox 97.8 F 83 18 146/83 H 98 01/18/20 01:18 01/18/20 01:18 01/18/20 01:18 01/18/20 01:18 01/18/20 01:18 Intake & Output 01/17/20 01/18/20 01/19/20 06:59 06:59 06:59 Weight 116.5 kg Results Laboratory Results: 01/17/20 19:03 01/17/20 19:03 01/17/20 01/17/20 01/17/20 19:03 19:03 22:31 WBC 9.1 RBC 4.06 L Hgb 13.3 L Hct 37.6 L MCV 93 MCH 32.8 MCHC 35.4 RDW 14.3 H Plt Count 175 Seg Neutrophils % 62.8 Sodium 138.4 Potassium 4.0 Chloride 104 Carbon Dioxide 23 Anion Gap 11 BUN 23 H Creatinine 0.91 Est GFR ( Amer) > 60 Glucose 174 H Calcium 10.0 Ionized Calcium Lauren 1.19 Phosphorus 4.9 H Magnesium 1.6 Total Bilirubin 0.5 AST 29 Alkaline Phosphatase 65 Total Protein 6.8 Albumin 4.4 01/17/20 01/17/20 01/18/20 19:03 19:03 00:24 Creatine Kinase 71 Troponin I < 0.012 < 0.012 NT-Pro-B Natriuret Pep 1480 H Impressions: Chest X-Ray 01/17/20 18:04 IMPRESSION: Mild interstitial thickening bilaterally. No consolidation or pleural effusion. 01/17/20 19:03 01/17/20 19:03 MCV 93 fl (80-97) 01/17/20 19:03 MCH 32.8 pg (27.0-33.4) 01/17/20 19:03 MCHC 35.4 g/dL (32.0-36.0) 01/17/20 19:03 RDW 14.3 % (11.5-14.0) H 01/17/20 19:03 Seg Neutrophils % 62.8 % (42-78) 01/17/20 19:03 Chloride 104 mmol/L (98-107) 01/17/20 19:03 Carbon Dioxide 23 mmol/L (22-30) 01/17/20 19:03 Anion Gap 11 (5-19) 01/17/20 19:03 Est GFR ( Amer) > 60 (>60) 01/17/20 19:03 Glucose 174 mg/dL (75-110) H 01/17/20 19:03 Calcium 10.0 mg/dL (8.4-10.2) 01/17/20 19:03 Ionized Calcium Lauren 1.19 mmol/L (1.14-1.30) 01/17/20 22:31 Phosphorus 4.9 mg/dL (2.5-4.5) H 01/17/20 19:03 Magnesium 1.6 mg/dL (1.6-2.3) 01/17/20 19:03 Total Bilirubin 0.5 mg/dL (0.2-1.3) 01/17/20 19:03 AST 29 U/L (17-59) 01/17/20 19:03 Alkaline Phosphatase 65 U/L (38-126) 01/17/20 19:03 Total Protein 6.8 g/dL (6.3-8.2) 01/17/20 19:03 Albumin 4.4 g/dL (3.5-5.0) 01/17/20 19:03 01/17/20 01/17/20 01/18/20 19:03 19:03 00:24 Creatine Kinase 71 Troponin I < 0.012 < 0.012 NT-Pro-B Natriuret Pep 1480 H Current Medication List Generic Name Dose Route Start Last Admin Trade Name Freq PRN Reason Stop Dose Admin Acetaminophen 650 mg 01/18/20 00:54 Tylenol 325 Mg Tablet PO 02/17/20 00:53 Q4HP PRN FEVER >101 Hydrocodone Bitart/Acetaminophen 1 tab 01/18/20 01:02 01/18/20 01:42 [place] 10-325 Mg Tablet PO 01/25/20 01:01 1 tab Q6HP PRN Administration FOR PAIN Albuterol/Ipratropium 3 ml 01/18/20 00:52 Duoneb 3 Ml Ampul NEB 02/17/20 00:51 RTQ4HP PRN SHORTNESS OF BREATH Allopurinol 100 mg 01/18/20 10:00 Zyloprim 100 Mg Tablet PO 02/17/20 09:59 DAILY [facility] Aspirin 81 mg 01/18/20 10:00 Ecotrin 81 Mg Ec Tablet PO 02/17/20 09:59 DAILY [facility] Atorvastatin Calcium 40 mg 01/18/20 22:00 Lipitor 40 Mg Tablet PO 02/17/20 21:59 QHS [facility] Colchicine 0.6 mg 01/18/20 10:00 Colcrys 0.6 Mg Tablet PO 02/17/20 09:59 DAILY [facility] Docusate Sodium 100 mg 01/18/20 10:00 Colace 100 Mg Capsule PO 02/17/20 09:59 DAILY [facility] Enoxaparin Sodium 115 mg 01/18/20 10:00 Lovenox Inj 120 Mg/0.8 Ml Disp.Syrin SUBCUT 02/17/20 09:59 Q12 [facility] Fluticasone/Vilanterol 1 inh 01/18/20 10:00 Breo 100-25 Mcg Ellipta 14 Dose/Dpi IH 02/17/20 09:59 DAILY [facility] Lisinopril 40 mg 01/18/20 10:00 Prinivil 10 Mg Tablet PO 02/17/20 09:59 DAILY [facility] Metoprolol Tartrate 25 mg 01/18/20 10:00 Lopressor 25 Mg Tablet PO 02/17/20 09:59 BID [facility] Ondansetron HCl 4 mg 01/18/20 00:54 Zofran Odt 4 Mg Tablet PO 02/17/20 00:53 Q8HP PRN FOR NAUSEA/VOMITING Pantoprazole Sodium 40 mg 01/18/20 06:00 01/18/20 06:[address] Tablet PO 02/17/20 05:59 40 mg Q6AM [facility] Administration Discontinued Medications Generic Name Dose Route Start Last Admin Trade Name Freq PRN Reason Stop Dose Admin Aspirin 324 mg 01/17/20 23:13 01/18/20 00:31 Aspirin 81 Mg Chewable Tablet PO 01/17/20 23:14 324 mg NOW ONE Administration Enoxaparin Sodium 115 mg 01/18/20 01:30 01/18/20 01:42 Lovenox Inj 120 Mg/0.8 Ml Disp.Syrin SUBCUT 01/18/20 01:31 115 mg NOW ONE Administration Assessment & Plan - Diagnosis (1) New onset atrial fibrillation Is this a current diagnosis for this admission?: Yes Plan: The patient was just diagnosed with new onset of atrial fibrillation. He is otherwise asymptomatic with a well-controlled heart rate. He is currently anticoagulated due to his chads 2 vascular score of 2 (hypertension and heart failure). Recommendations: -Echocardiogram to assess for structural heart disease. -Lexiscan nuclear stress test when patient is euvolemic. -Continue with current medical management. (2) Elevated brain natriuretic peptide (BNP) level Is this a current diagnosis for this admission?: Yes Plan: Likely secondary to his atrial fibrillation and probable heart failure with preserved ejection fraction given his echocardiogram in 2017 with normal left ventricular systolic function. Recommendations: -Continue diuresis with Lasix 10 mg IV twice daily -Replace electrolytes as indicated. -Restrict fluid intake to 1500 cc daily. -Low sodium diet, less than 1500 mg daily. -Strict intake and output. -Daily weights. -Echocardiogram. -Ischemic assessment when the patient is euvolemic. (3) Chest pain Qualifiers: Chest pain type: unspecified Qualified Code(s): R07.9 - Chest pain, unspecified Is this a current diagnosis for this admission?: Yes Plan: The patient will undergo nuclear stress testing when euvolemic.
[2020-01-18 13:57] VITALS: BP 117/70
--- NOTE | 2020-01-18 20:49 | XCELERA REPORT ---
[address] [address] Transthoracic Echocardiogram Report Name: BROOKLYN JACKSON Age: 59 yrs Gender: Male : 1960 Patient Status: Inpatient Patient Location: [address] [place] [address] Study Date: 01/18/2020 10:13 AM Height: 71 in Weight: 256 lb BSA: 2.3 m2 Procedure: A complete two-dimensional transthoracic echocardiogram was performed (2D, M-mode, spectral and color flow Doppler). Study Quality: Technically suboptimal. Reason For Study: CHF Ordering Physician: KIERSTEN NEWMAN Performed By: Tanja Ortega Interpretation Summary The left ventricle is normal in size. Left ventricular systolic function is normal. LV EF is 60%. LV diastolic function could not be adequately assessed due to atrial fibrilation. Regional wall motion abnormalities cannot be excluded due to limited visualization. There is no thrombus. LV diastolic function could not be adequately assessed due to atrial fibrilation. Mild LAE. Trace MR, trace TR. Small, hemodynamically insignificant anteror pericardial effusion. When compared to a prior study dated JUL 27, there is now a small, anterior pericardial effusion. MMode/2D Measurements & Calculations RVDd: 2.3 cm LVIDd: 5.6 cm FS: 28.8 % Ao root diam: 2.6 cm IVSd: 1.1 cm LVIDs: 4.0 cm EDV(Teich): 152.8 ml Ao root area: 5.4 cm2 LVPWd: 1.3 cm ESV(Teich): 69.1 ml EF(Teich): 54.8 % Doppler Measurements & Calculations MV E max catrachita: MV dec slope: Ao V2 max: LV V1 max P.8 cm/sec 499.0 cm/sec2 88.4 cm/sec 3.1 mmHg MV dec time: 0.21 secAo max PG: LV V1 max: 3.1 mmHg 87.3 cm/sec PA V2 max: TR max catrachita: 69.8 cm/sec 246.1 cm/sec PA max P.0 mmHg TR max P.2 mmHg Left Ventricle The left ventricle is normal in size. Left ventricular systolic function is normal. LV EF is 60%. LV diastolic function could not be adequately assessed due to atrial fibrilation. Regional wall motion abnormalities cannot be excluded due to limited visualization. There is no thrombus. Right Ventricle The right ventricle is normal in size, thickness and function. The right ventricular systolic function is normal. Atria The right atrium is normal. The left atrium is mildly dilated. Interarterial septum not well visualized and not well dopplered. Cannot comment on ASD/PFO presence. Mitral Valve The mitral valve is normal in structure and function. There is a trace amount of mitral regurgitation. Aortic Valve The aortic valve is not well visualized secondary to technical limitations. No aortic regurgitation is present. Tricuspid Valve The tricuspid is normal in structure and function. There is a trace or physiologic amount of tricuspid regurgitation. Pulmonic Valve The pulmonic valve is normal in structure and function. There is no pulmonic valvular regurgitation. Effusions Small, hemodynamically insignificant anteror pericardial effusion. : KIERSTEN NEWMAN Antonio
[2020-01-18] MEDS ORDERED: ATORVASTATIN CALCIUM 40 MG TABLET PO SCH (22:00)
[2020-01-19] MEDS ORDERED: INFLUENZA QUAD (6MOS+) 2020-21 VAC 0.5 ML SYR IM ONE (08:00)
--- NOTE | 2020-01-19 19:37 | PDOC DISCHARGE SUMMARY ---
Impression - Admit/DC Date/PCP Admission Date/Primary Care Provider: 01/18/20 00:52 LUIS BANERJEE-Miguel Discharge Date: 01/18/20 - Discharge Diagnosis (1) New onset atrial fibrillation Is this a current diagnosis for this admission?: Yes (2) Elevated brain natriuretic peptide (BNP) level Is this a current diagnosis for this admission?: Yes (3) Weight gain with edema Is this a current diagnosis for this admission?: Yes (4) Chest pain Is this a current diagnosis for this admission?: Yes (5) Gout Is this a current diagnosis for this admission?: Yes (6) HLD (hyperlipidemia) Is this a current diagnosis for this admission?: Yes (7) HTN (hypertension) Is this a current diagnosis for this admission?: Yes (8) Obesity (BMI 30-39.9) Is this a current diagnosis for this admission?: Yes (9) Tobacco abuse Is this a current diagnosis for this admission?: Yes (10) Pre-diabetes Is this a current diagnosis for this admission?: Yes - Assessment Summary: BROOKLYN JACKSON is a 59 year old male, past medical history of hypertension, hyperlipidemia, gout, asthma, COPD who was sent to the emergency room by his primary care physician for new onset A. fib. Per pt an irregular heart rate was noted by his PCP on exam, this was confirmed by EKG and pt was subsequently referred to the ED for evaluation of management. On evaluation pt reports a 15 pound weight gain for the past month, with leg swelling, exertional dyspnea, palpitations, and chest pain relieved by rest, midsternal, non radiating. He denies PND, orthopnea and DUNLAP. BNP in the ED was slightly elevated at 1480 with CXR suggestive of early pulmonary edema. Pt was placed on telemetry which demonstrated atrial fibrillation with a controlled rate. Patient's previous reports were reviewed. Pt had previous cardiac work up including nuclear stress testing 08/16/2016 and Echocardiogram 07/28/2016 with preserved LVEF of 69% at that time. An echocardiogram was obtained today, for evaluation of structural heart disease with results pending. Patient was found to have a LONG-VASC score of 2 (HTN and heart failure) indicating the need for anticoagulant therapy; anticoagulation with Eliquis initiated at discharge. On telemetry which demonstrated atrial fibrillation with a controlled rate. Metoprolol 25mg initiated for rate control. Suspect pt's elevated BNP is secondary to atrial fibrillation and probable heart failure. We increased pt's lasix to 20mg twice daily. Educated the patient on limited fluid intake and low sodium diet. Patient is encouraged to weight himself daily. He is instructed on appropriate lasix adjustments given weight gain. Pt is instructed to stop his HCTZ at this time. He is scheduled to f/u with cardiology in 1-2 weeks for repeat stress test. On evaluation pt was found to be pre-diabetic with hemaglobin A1C of 6.1. Educated on appropriate diet. No treatment necessary at this time. Pt is to f/u with PCP for further monitoring and treatment. - Additional Information Resuscitation Status: Full Code Discharge Diet: Cardiac, Diabetic, Other (Comments) Discharge Activity: Activity As Tolerated Referrals: TOSHIA GIFFORD FNP-C [Primary Care Provider] - 01/19/20 11:00 am Prescriptions: Apixaban [Eliquis] 5 mg PO ASDIR #1 tab.ds.pk Furosemide [Lasix 20 mg Tablet] 20 mg PO QAM #30 tablet Home Medications: Atorvastatin Calcium 40 mg PO DAILY 05/25/17 Cholecalciferol (Vitamin D3) [Vitamin D3] 2,000 unit PO DAILY 05/25/17 Lisinopril 40 mg PO DAILY 05/25/17 Metoprolol Tartrate [Lopressor 25 mg Tablet] 25 mg PO BID 05/25/17 Omeprazole 40 mg PO DAILY 11/30/18 Albuterol Sulfate [Proair Respiclick] 2 puff IH QID 12/02/18 Fluticasone/Salmeterol [Advair 250-50 Diskus 14 Dose/Diskus] 1 inh IH BID 12/02/18 Allopurinol [Zyloprim 300 mg Tablet] 600 mg PO DAILY 01/18/20 Apixaban [Eliquis] 5 mg PO ASDIR #1 tab.ds.pk 01/18/20 Fluticasone Propionate [Flonase Nasal [place] 50 Mcg/[place] 16 gm] 2 sprays NASL Q12 01/18/20 Furosemide [Lasix 20 mg Tablet] 20 mg PO QAM #30 tablet 01/18/20 Gabapentin [Neurontin 300 mg Capsule] 300 mg PO QID 01/18/20 Loratadine [Claritin 10 mg Tablet] 10 mg PO DAILY 01/18/20 Meloxicam [Mobic] 15 mg PO DAILY 01/18/20 Pravastatin Sodium 80 mg PO DAILY 01/18/20 History of Present Illiness History of Present Illness: BROOKLYN JACKSON is a 59 year old male, past medical history of hypertension, hyperlipidemia, gout, asthma, COPD who was sent to the emergency room by his primary care physician for new onset A. fib. Patient saw his primary care physician today for a follow-up appointment to discuss his medications. Upon physical exam his primary care noted irregular heart rate and rhythm, which was confirmed by EKG. He was sent to the ED for further evaluation and management. According to the patient he is noticed a 15 pound weight gain for the past month, with leg swelling, exertional dyspnea, palpitations, and chest pain relieved by rest, midsternal, non radiating. He has seen Dr. Portillo in the past. Physical Exam Vital Signs: Temp Pulse Resp BP Pulse Ox 98.0 F 60 18 117/70 97 01/18/20 15:47 01/18/20 15:47 01/18/20 15:47 01/18/20 12:03 01/18/20 15:47 Intake & Output 01/17/20 01/18/20 01/19/20 06:59 06:59 06:59 Intake Total 480 Balance 480 Weight 116.5 kg General appearance: PRESENT: no acute distress, cooperative, obese Head exam: PRESENT: atraumatic, normocephalic Eye exam: PRESENT: conjunctiva pink, EOMI, PERRLA Mouth exam: PRESENT: moist, tongue midline Neck exam: PRESENT: full ROM. ABSENT: JVD Respiratory exam: PRESENT: clear to auscultation kayleigh, symmetrical, unlabored. ABSENT: rales Cardiovascular exam: PRESENT: irregular rhythm - Irregularly irregular rhythm and rate, +S1, +S2. ABSENT: diastolic murmur, rubs, systolic murmur GI/Abdominal exam: PRESENT: normal bowel sounds, soft. ABSENT: distended, firm, guarding, tenderness Extremities exam: PRESENT: full ROM, +1 edema - bilaterally. ABSENT: tenderness Musculoskeletal exam: PRESENT: ambulatory, full ROM. ABSENT: deformity, dislocation Neurological exam: PRESENT: alert, awake, oriented to person, oriented to place, oriented to time Psychiatric exam: PRESENT: appropriate affect, normal mood Skin exam: PRESENT: dry, intact, warm Results Laboratory Results: WBC 9.1 10^3/uL (4.0-10.5) 01/17/20 19:03 RBC 4.06 10^6/uL (4.35-5.55) L 01/17/20 19:03 Hgb 13.3 g/dL (13.5-17.0) L 01/17/20 19:03 Hct 37.6 % (37.9-51.0) L 01/17/20 19:03 MCV 93 fl (80-97) 01/17/20 19:03 MCH 32.8 pg (27.0-33.4) 01/17/20 19: MCHC 35.4 g/dL (32.0-36.0) 01/17/20 19:03 RDW 14.3 % (11.5-14.0) H 01/17/20 19:03 Plt Count 175 10^3/uL (150-450) 01/17/20 19:03 Lymph % (Auto) 23.8 % (13-45) 01/17/20 19:03 [place] % (Auto) 8.8 % (3-13) 01/17/20 19:03 Eos % (Auto) 3.6 % (0-6) 01/17/20 19:03 Baso % (Auto) 1.0 % (0-2) 01/17/20 19:03 Absolute Neuts (auto) 5.7 10^3/uL (1.7-8.2) 01/17/20 19:03 Absolute Lymphs (auto) 2.2 10^3/uL (0.5-4.7) 01/17/20 19:03 Absolute Monos (auto) 0.8 10^3/uL (0.1-1.4) 01/17/20 19:03 Absolute Eos (auto) 0.3 10^3/uL (0.0-0.6) 01/17/20 19:03 Absolute Basos (auto) 0.1 10^3/uL (0.0-0.2) 01/17/20 19:03 Seg Neutrophils % 62.8 % (42-78) 01/17/20 19:03 PT 14.0 SEC (11.4-15.4) 01/17/20 19:03 INR 1.06 01/17/20 19:03 APTT 30.3 SEC (23.5-35.8) 01/17/20 19:03 Sodium 138.4 mmol/L (137-145) 01/17/20 19:03 Potassium 4.0 mmol/L (3.6-5.0) 01/17/20 19:03 Chloride 104 mmol/L (98-107) 01/17/20 19:03 Carbon Dioxide 23 mmol/L (22-30) 01/17/20 19:03 Anion Gap 11 (5-19) 01/17/20 19:03 BUN 23 mg/dL (7-20) H 01/17/20 19:03 Creatinine 0.91 mg/dL (0.52-1.25) 01/17/20 19:03 Est GFR ( Amer) > 60 (>60) 01/17/20 19:03 Est GFR (MDRD) Non-Af > 60 (>60) 01/17/20 19:03 Glucose 174 mg/dL (75-110) H 01/17/20 19:03 Hemoglobin A1c % 6.1 % (4.7-6.0) H 01/17/20 19:03 Calcium 10.0 mg/dL (8.4-10.2) 01/17/20 19:03 Ionized Calcium Lauren 1.19 mmol/L (1.14-1.30) 01/17/20 22:31 Phosphorus 4.9 mg/dL (2.5-4.5) H 01/17/20 19:03 Magnesium 1.6 mg/dL (1.6-2.3) 01/17/20 19:03 Total Bilirubin 0.5 mg/dL (0.2-1.3) 01/17/20 19:03 Direct Bilirubin 0.3 mg/dL (0.0-0.4) 01/17/20 19:03 Neonat Total Bilirubin Not Reportable 01/17/20 19:03 Neonat Direct Bilirubin Not Reportable 01/17/20 19:03 Neonat Indirect Bili Not Reportable 01/17/20 19:03 AST 29 U/L (17-59) 01/17/20 19:03 ALT 55 U/L (<50) H 01/17/20 19:03 Alkaline Phosphatase 65 U/L (38-126) 01/17/20 19:03 Creatine Kinase 71 U/L (55-170) 01/17/20 19:03 Troponin I < 0.012 ng/mL 01/18/20 00:24 NT-Pro-B Natriuret Pep 1480 pg/mL (<125) H 01/17/20 19:03 Total Protein 6.8 g/dL (6.3-8.2) 01/17/20 19:03 Albumin 4.4 g/dL (3.5-5.0) 01/17/20 19:03 TSH 3.92 uIU/mL (0.47-4.68) 01/17/20 19:03 01/17/20 01/18/20 19:03 00:24 Troponin I < 0.012 < 0.012 NT-Pro-B Natriuret Pep 1480 H EKG Comments: Atrial fibrillation, ventricular rate of 62-139. Impressions: Chest X-Ray 01/17/20 18:04 IMPRESSION: Mild interstitial thickening bilaterally. No consolidation or pleural effusion. Plan Time Spent: Greater than 30 Minutes Stroke Is this a Stroke Patient?: No Acute Heart Failure Is this a Heart Failure Patient?: Yes Documentation of LVEF assessment?: Yes LVEF: LVEF Greater Than 40% - unknonw, echo results are pending, d/c pt with permission from Dr. Portillo Anticoagulant Therapy: Yes Discharged on Evidence-Based Beta Blockers: Yes Discharged on ARNI?: No-Document Contraindications Reason(s) not discharged on ARNI: ACEI use within the prior 36 hours ARNI Reason - Other: ACEI Discharged on ARB?: No-document contraindications Reason(s) not Discharged on ARB: Other - ACEI therapy ARB Reason - Other: ACEI therapy Discharged on ACEI?: Yes For LVEF <35%, discharged on Aldosterone Antagonist?: N/A (LVEF > or = 35%) Follow-up Appointment scheduled within 7 days?: Yes
== END 2020-01-18 16:20 | disposition home or self-care (01) | DRG 310 ==
LOC: ER 17:38 → EH 23:56 → OBSVTOIN 01-18 00:52 → 4N 01-18 01:20
PROVIDERS: ADMIT Internal Medicine; ATTEND Hospitalist
PROC: B24BZZ4 Ultrasonography of Heart with Aorta, Transesophageal (ICD-10-PCS; principal; 2020-01-18)
DX: I48.91 Unspecified atrial fibrillation (principal); I10 Essential (primary) hypertension; E78.5 Hyperlipidemia, unspecified; J44.9 Chronic obstructive pulmonary disease, unspecified; M1A.9XX0 Chronic gout, unspecified, without tophus (tophi); R79.89 Other specified abnormal findings of blood chemistry; R07.9 Chest pain, unspecified; R63.5 Abnormal weight gain; F10.21 Alcohol dependence, in remission; F17.210 Nicotine dependence, cigarettes, uncomplicated; E66.9 Obesity, unspecified; J45.909 Unspecified asthma, uncomplicated; E55.9 Vitamin D deficiency, unspecified; Z68.35 Body mass index [BMI] 35.0-35.9, adult; Z79.899 Other long term (current) drug therapy; Z79.51 Long term (current) use of inhaled steroids; Z79.82 Long term (current) use of aspirin
CPT/HCPCS: 36415; 71045; 80053; 82330; 82550; 83036; 83735; 83880; 84100; 84443; 84484; 85025; 85610; 85730; 93005; 93010; 93306; 99285; J1650; J1940; J3490

== ENCOUNTER → 2020-03-26 | Outpatient (CLI) | payer MEDICAID ==
--- NOTE | 2020-03-26 15:31 | RADIOLOGY REPORT (SQ) ---
EXAM DESCRIPTION: [employer]; ARTERIAL LOWER EXTREM BILAT IMAGES COMPLETED DATE/TIME: 03/26/2020 2:46 pm REASON FOR STUDY: PVD I73.9 PERIPHERAL VASCULAR DISEASE, UNSPECIFIED COMPARISON: None. TECHNIQUE: Dynamic and static strickland scale and color images acquired of the lower extremity arteries. Additional selected spectral images recorded. ABIs recorded. LIMITATIONS: None. FINDINGS: RIGHT LEG: ABIS: 0.98 INFLOW ARTERIES: Not imaged. FEMORAL ARTERIES:Multiphasic waveforms. Elevated velocity PREPARATION OPERATOR 3.4 m/sec. POPLITEAL ARTERY:Multiphasic waveforms. No significant stenosis. PATENT TIBIOPERONEAL TRUNK AND 3 VESSEL RUNOFF: Two-vessel runoff. Peroneal artery is not visualized . Monophasic waveforms. Retrograde flow in the distal anterior tibial artery. TBI: Not performed. OTHER: No other significant finding. LEFT LEG: ABIS: 0.87 INFLOW ARTERIES: Not imaged. FEMORAL ARTERIES:Multiphasic waveforms. Elevated velocity PREPARATION OPERATOR 2.2 m/sec. Elevated velocity distal SF A 2.5 m/sec. POPLITEAL ARTERY:Multiphasic waveforms. No significant stenosis. PATENT TIBIOPERONEAL TRUNK AND 3 VESSEL RUNOFF: Three-vessel runoff. TBI: Not performed. OTHER: No other significant finding. IMPRESSION: Right: Estimated 50- 75% stenosis of the PREPARATION OPERATOR. Two-vessel runoff. Small vessel disease . Left: Estimated 50% stenosis PREPARATION OPERATOR and distal SFA. Three-vessel runoff. Small vessel disease. COMMENT: [facility] NORMAL: Greater than 1.0 MINIMAL DISEASE: 0.9 to 1.0 CLAUDICATION: 0.5 to 0.9 SEVERE ARTERIAL DISEASE: Less than 0.5 [facility] NORMAL: Greater than 1.0 (1.2 If Heavy Calcifications) NORMAL TO MILD ISCHEMIA: 0.8 to 1.0 MODERATE ISCHEMIA: 0.4 to 0.8 SEVERE ISCHEMIA: Less than 0.4 TECHNICAL DOCUMENTATION: JOB ID: [id number] [email or web address]- All Rights Reserved Reading location - IP/workstation name: [email or web address]
--- NOTE | 2020-03-26 15:31 | RADIOLOGY REPORT (SQ) ---
EXAM DESCRIPTION: [employer]; ARTERIAL LOWER EXTREM BILAT IMAGES COMPLETED DATE/TIME: 03/26/2020 2:46 pm REASON FOR STUDY: PVD I73.9 PERIPHERAL VASCULAR DISEASE, UNSPECIFIED COMPARISON: None. TECHNIQUE: Dynamic and static strickland scale and color images acquired of the lower extremity arteries. Additional selected spectral images recorded. ABIs recorded. LIMITATIONS: None. FINDINGS: RIGHT LEG: ABIS: 0.98 INFLOW ARTERIES: Not imaged. FEMORAL ARTERIES:Multiphasic waveforms. Elevated velocity YARD WORKER 3.4 m/sec. POPLITEAL ARTERY:Multiphasic waveforms. No significant stenosis. PATENT TIBIOPERONEAL TRUNK AND 3 VESSEL RUNOFF: Two-vessel runoff. Peroneal artery is not visualized . Monophasic waveforms. Retrograde flow in the distal anterior tibial artery. TBI: Not performed. OTHER: No other significant finding. LEFT LEG: ABIS: 0.87 INFLOW ARTERIES: Not imaged. FEMORAL ARTERIES:Multiphasic waveforms. Elevated velocity YARD WORKER 2.2 m/sec. Elevated velocity distal SF A 2.5 m/sec. POPLITEAL ARTERY:Multiphasic waveforms. No significant stenosis. PATENT TIBIOPERONEAL TRUNK AND 3 VESSEL RUNOFF: Three-vessel runoff. TBI: Not performed. OTHER: No other significant finding. IMPRESSION: Right: Estimated 50- 75% stenosis of the YARD WORKER. Two-vessel runoff. Small vessel disease . Left: Estimated 50% stenosis YARD WORKER and distal SFA. Three-vessel runoff. Small vessel disease. COMMENT: [facility] NORMAL: Greater than 1.0 MINIMAL DISEASE: 0.9 to 1.0 CLAUDICATION: 0.5 to 0.9 SEVERE ARTERIAL DISEASE: Less than 0.5 [facility] NORMAL: Greater than 1.0 (1.2 If Heavy Calcifications) NORMAL TO MILD ISCHEMIA: 0.8 to 1.0 MODERATE ISCHEMIA: 0.4 to 0.8 SEVERE ISCHEMIA: Less than 0.4 TECHNICAL DOCUMENTATION: JOB ID: [id number] [employer] All Rights Reserved Reading location - IP/workstation name: [email or web address]
== END ==
LOC: SP 08:32
PROVIDERS: ATTEND Nurse Practitioner Family
DX: I73.9 Peripheral vascular disease, unspecified (principal)
CPT/HCPCS: 93922; 93925